=== PATIENT | female | born 1990 | race Caucasian/White ===

== ENCOUNTER 2016-07-18 08:49 | Outpatient (CLI) | payer OTHER ==
[2016-07-18 09:13] VITALS: BMI 34.4
== END 2016-07-18 10:22 | disposition home or self-care (01) ==
LOC: FBCOUT 08:49 → FBC 08:54 → FBCOUT 10:22
PROVIDERS: ATTEND Obstetrics & Gynecology
DX: O26.899 Other specified pregnancy related conditions, unspecified trimester (principal); Z3A.00 Weeks of gestation of pregnancy not specified
CPT/HCPCS: 59025; 81002; G0463

== ENCOUNTER 2016-07-18 13:24 | Inpatient (IN) | payer OTHER ==
[2016-07-18] MEDS ORDERED: LACTATED RINGERS 1,000 ML IV PRN (17:30)
[2016-07-18] MEDS ORDERED: OXYTOCIN IN LR 500 ML IV ONE (17:30)
--- NOTE | 2016-07-18 17:44 | PCMAN ---
OB Admission Note - History : 2 Term: 1 : 0 Abortions (S&E): 0 Livin EDC:: 07/26/16 Gestational Age (weeks): 38 Days (#/7): 6 Admit Cervical Dilation:: 3cm Admit Cervical Effacement (%):: 95 Admit Station:: -2 Admit Presentaton:: vertex Membrane Status: Intact Membranes Comment:: Pt had a leak of fluid at 2am but none since. Testing was negative Labor Onset (Date): 07/18/16 Labor Onset (Time): 13:00 Contractions: Yes Contraction Frequency:: q 2-3min Heart Rate:: 140 (category 1) Status:: good EFW:: 7.5 lbs Summary of Course:: Pt followed since 9 weeks gestation. Regular increase in fundal height; weight gain of approx 30lbs; Normal BP's and no proteinuria. - Labs Blood Type: A (+) positive Hct/Hgb:: 14.7 Rubella Status: Immune GBS Status: Negative Abnormal Labs: None Other Labs:: 1H GTT 123 - Review of Systems Healthy young woman. FoB present and supportive. Neg ROS. - Physical Exam Psych/Mental Status: Mood/Affect Appropriate Neurological: Oriented x 4, Normal Speech Lungs: Clear to Auscultation Bilaterally Cardiovascular: Regular Rate and Rhythm Abdomen: Normal Bowel Sounds Genitourinary: Normal Female Genitalia Extremities: Full ROM Skin: Normal Color, Warm - Problems (1) Active labor at term Status: Acute Code: [id number] - Additional Comments Pt is hoping for natural childbirth. Her last labor was quick. Plan: admit for active management.
[2016-07-18 18:05] VITALS: BMI 34.8
[2016-07-18] MEDS ORDERED: IV START KIT ONE (18:36)
[2016-07-18] MEDS ORDERED: SODIUM CHLORIDE 0.9% FLUSH 0 ML ONE (18:37)
[2016-07-18] MEDS ORDERED: MINERAL OIL 25 ML BOT ONE (18:37)
[2016-07-18] MEDS ORDERED: OXYTOCIN 10 UNITS/ML VIAL ONE (18:37)
[2016-07-18] MEDS ORDERED: LIDOCAINE Viscous 2% 15 ML UDCUP ONE (18:37)
[2016-07-18] MEDS ORDERED: OXYTOCIN IN LR 0 ML IV ONE (18:37)
[2016-07-18] MEDS ORDERED: LIDOCAINE 1% (PRES FREE) 30 ML VIAL ONE (18:37)
[2016-07-18] MEDS ORDERED: PUMP TUBING ONE (18:37)
[2016-07-18 18:40] LABS: HEMATOCRIT 41.5 % (37.0-47.0); HEMOGLOBIN 14.5 gm/l (12.0-16.0); MEAN CELL VOLUME 91.6 fl (81.0-99.0); MEAN CORPUSCULAR HGB CONC 34.9 g/dl (33.0-37.0); RED CELL DISTRIBUTION WIDTH 13.6 % (11.5-14.5)
[2016-07-18] MEDS ORDERED: OXYTOCIN 10 UNITS/ML VIAL IM ONE (19:01)
[2016-07-18] MEDS ORDERED: IBUPROFEN 800 MG TABLET ONE (19:24)
[2016-07-18] MEDS ORDERED: OXYCODONE HCL 5 MG TABLET PO PRN (19:30)
[2016-07-18] MEDS ORDERED: CALCIUM CARBONATE 500 MG TAB.CHEW PO PRN (19:30)
[2016-07-18] MEDS ORDERED: MEASLES,MUMPS&RUBELLA VACCINE 0.5 ML VIAL SUB-Q V ONE (19:30)
[2016-07-18] MEDS ORDERED: BENZOCAINE/MENTHOL 60 APPLIC/BOT TP PRN (19:30)
[2016-07-18] MEDS ORDERED: LANOLIN 50 APPLIC/7G TUBE TP PRN (19:30)
[2016-07-18] MEDS ORDERED: ACETAMINOPHEN 325 MG TABLET PO PRN (19:30)
[2016-07-18] MEDS ORDERED: DOCUSATE SODIUM 100 MG CAPSULE PO PRN (19:30)
[2016-07-18] MEDS ORDERED: DIPHTH,PERTUSS(ACELL),TET VAC 0.5 ML VIAL IM V ONE (19:30)
[2016-07-18] MEDS ORDERED: SENNOSIDES 8.6 MG TABLET PO PRN (19:30)
[2016-07-18] MEDS: IBUPROFEN 800 MG TABLET PO PRN (19:33)
--- NOTE | 2016-07-18 21:20 | PCMDEL ---
Delivery Note - Labor 1st stage (hr/min):: 1H 49min 2nd stage (hr/min):: 4min 3rd stage (hr/min):: 7min Total (hr/min):: 2H Pushed (hr/min):: twice - Delivery Delivery (Date): 07/18/16 Delivery (Time): 18:53 Infant Gender: Female Weight: 8 lb 7 oz Length: 1 ft 8 in Presentation: Cephalic Position: OA Umbilical Cord: 3 Vessel, Nuchal Cord Delayed Cord Clamping:: > 3 min 1 Minute Total: 8 5 Minute Total: 9 Placenta:: complete, meconium staining EBL:: 300 Perineum:: intact except one small separation, not bleeding Suture:: Not indicated Anesthesia/Meds:: NONE Comments:: Labor became quite intense and pt wanted to try the jacuzzi. When she got out she felt pushey, and indeed was fully dilated and ready. Preparations were rapidly made for an imminent and the baby was delivered. Since the second stage went smoothly it was decided not to place a saline lock. Mother and baby girl did well in the period.
[2016-07-18] MEDS: OXYCODONE/ACETAMINOPHEN 5/325 MG TABLET PO PRN (23:49)
[2016-07-19] MEDS: IBUPROFEN 800 MG TABLET PO PRN ×3 (01:48→16:32)
[2016-07-19] MEDS: OXYCODONE/ACETAMINOPHEN 5/325 MG TABLET PO PRN ×3 (06:10→16:32)
[2016-07-19 06:53] LABS: HEMATOCRIT 38.1 % (37.0-47.0); HEMOGLOBIN 13.3 gm/l (12.0-16.0)
--- NOTE | 2016-07-19 07:35 | PDOC44 ---
- Subjective Day: 1 Reports Flatus, Reports Pain Tolerable, Reports , Reports Lochia Light, Reports Tolerating Regular Diet, Denies Nausea, Denies Vomiting, Denies Fever - Objective Temp Pulse Resp BP Pulse Ox 98.1 F 50 14 139/88 07/19/16 01:53 07/19/16 01:53 07/19/16 01:53 07/19/16 01:53 Lab Results 07/19/16 07/18/16 06:05 18:20 WBC 13.8 H RBC 4.53 Hgb 13.3 14.5 Hct 38.1 41.5 Plt Count 174 07/18/16 18:20 MCH 32.0 H Current Medications Generic Name Dose Route Start Last Admin Trade Name Freq PRN Reason Stop Dose Admin Acetaminophen 325 - 650 mg 07/18/16 19:30 Tylenol PO Q4H PRN Pain (Mild) Benzocaine/Menthol 1 applic 07/18/16 19:30 Dermoplast TP PRN PRN Patient Comfort Calcium Carbonate/Glycine 500 - 1,000 mg 07/18/16 19:30 Tums PO BID PRN Indigestion Docusate Sodium 100 mg 07/18/16 19:30 Colace PO DAILY PRN Comfort/CONSTIPATION Emollient Ointment 1 applic 07/18/16 19:30 [id number] TP PRN PRN sore nipples Ibuprofen 800 mg 07/18/16 19:30 07/19/16 01:48 Motrin PO 800 mg Q6H PRN Administration Pain (Mild) Oxycodone HCl 5 - 10 mg 07/18/16 19:30 Roxicodone PO Q3H PRN Pain (Severe) Oxycodone/Acetaminophen 1 - 2 tab 07/18/16 19:30 07/19/16 06:10 Percocet 5/325 PO 1 tab Q4H PRN Administration Pain (Moderate) Senna 17.2 mg 07/18/16 19:30 Senokot PO BEDTIME PRN Comfort Sodium Chloride 10 ml 07/18/16 19:30 Normal Saline 10ml Flush IV PRN PRN IV Flush Sodium Chloride 10 ml 07/19/16 01:00 Normal Saline 10ml Flush IV Q8HR SIDNEY - Physical Exam General: Afebrile, No Acute Distress Fundus: Firm, Below Umbilicus Abdomen: No Tenderness, No Distention Disposition: Anticipate DC to Home (Pt desires d/c home today. D/c today; f/u 4w. Rx motrin.)
--- NOTE | 2016-07-19 07:37 | PDOC39B ---
Hospital Course: ADMIT DATE: 07/18/16 DISCHARGE DATE: 07/19/16 ADMISSION DIAGNOSES: term , labor PROCEDURES: vaginal delivery HISTORY OF PRESENT ILLNESS: 25 year old G2 T1 L1 at 38 weeks 6 days presenting with labor. HOSPITAL COURSE: The patient had a normal vaginal delivery. Baby Female 8lbs 7oz, 8/9 apgars delivered. Patient did well . By day of discharge the patient is ambulating, eating, voiding, and passing flatus without difficulty. Pain is controlled and lochia is appropriate. She is []. Patient is discharged on PPD#1 in stable condition with rx for motrin and will f /u in 4w. Vital Signs - 24 hr 07/18/16 07/18/16 07/18/16 19:03 19:18 19:33 Temperature 98.3 F Pulse Rate 89 86 71 Respiratory 18 Rate Blood Pressure 131/84 116/78 119/80 07/18/16 07/18/16 07/18/16 19:50 20:07 20:35 Temperature Pulse Rate 82 56 54 Respiratory 16 Rate Blood Pressure 125/75 137/74 130/77 07/18/16 07/18/16 07/19/16 21:10 22:55 01:53 Temperature 98.4 F 98.1 F Pulse Rate 82 80 50 Respiratory 16 14 14 Rate Blood Pressure 128/58 117/57 139/88 Laboratory Tests 07/18/16 07/19/16 18:20 06:05 WBC 13.8 H RBC 4.53 Hgb 14.5 13.3 Hct 41.5 38.1 MCV 91.6 MCH 32.0 H MCHC 34.9 RDW 13.6 Plt Count 174 RPR Not Reportable - Physical Exam Vital Signs: Temp Pulse Resp BP Pulse Ox 98.1 F 50 14 139/88 07/19/16 01:53 07/19/16 01:53 07/19/16 01:53 07/19/16 01:53
[2016-07-19 14:16] VITALS: BP 128/60
== END 2016-07-19 18:44 | disposition home or self-care (01) | DRG 775 ==
LOC: FBCOUT 13:24 → FBC 13:26 → FBCOUT 17:24 → FBC 07-19 10:53
PROVIDERS: ADMIT Obstetrics & Gynecology; ATTEND Obstetrics & Gynecology
PROC: 10E0XZZ Delivery of Products of Conception, External Approach (ICD-10-PCS; principal; 2016-07-18)
DX: O69.81X0 Labor and delivery complicated by cord around neck, without compression, not applicable or unspecified (principal); O77.0 Labor and delivery complicated by meconium in amniotic fluid; Z88.1 Allergy status to other antibiotic agents; Z87.09 Personal history of other diseases of the respiratory system; Z3A.38 38 weeks gestation of pregnancy; Z37.0 Single live birth